=== PATIENT | male | born 1965 | race Caucasian/White ===

== ENCOUNTER 2017-02-02 01:47 | Emergency (ER) | payer OTHER ==
[2017-02-02 03:58] LABS: AMORPHOUS SEDIMENT,URINE TRACE /HPF; APPEARANCE,URINE TURBID; BILIRUBIN,URINE NEGATIVE (NEGATIVE); GLUCOSE, URINE NEGATIVE (NEGATIVE); KETONES,URINE NEGATIVE (NEGATIVE); LEUKOCYTE ESTERASE,URINE NEGATIVE (NEGATIVE); NITRITE,URINE NEGATIVE (NEGATIVE); PROTEIN,URINE NEGATIVE (NEGATIVE); URINE SPECIFIC GRAVITY 1.034; UROBILINOGEN,URINE NEGATIVE mg/dL (<2.0)
--- NOTE | 2017-02-02 05:38 | ER Document Report ---
ED Medical Screen (RME) - General Chief Complaint: Testicular Pain Stated Complaint: GROIN PAIN Notes: 51-year-old male, chief complaint of left testicular pain, symptoms started about 2 days ago, denies injury, denies discharge, fever, denies history of the same. States symptoms started after coughing episodes with upper respiratory infection. TRAVEL OUTSIDE OF THE [place] IN LAST 30 DAYS: No - Related Data Allergies/Adverse Reactions: No Known Allergies Allergy (Unverified 12/25/12 19:46) Past Medical History - Social History Family history: CAD, DM, Hyperlipidemia, Hypertension Renal/ Medical History: Denies: Hx Peritoneal Dialysis Psychiatric Medical History: Reports: Hx Anxiety - Immunizations Immunizations up to date: Yes Hx Diphtheria, Pertussis, Tetanus Vaccination: Yes Physical Exam - Vital signs Vitals: Temp Pulse Resp BP Pulse Ox 97.4 F 55 L 16 133/57 H 97 02/02/17 02:08 02/02/17 02:08 02/02/17 02:08 02/02/17 02:08 02/02/17 02:08 - Genitourinary Inspection: Normal Tenderness: Other - Testicular/epididymis area tender (posterior left scrotal tenderness) Cremasteric reflex: Normal Scrotum: No: Swelling, Redness, Hot to touch Course - Vital Signs Vital signs: Temp Pulse Resp BP Pulse Ox 97.4 F 55 L 16 133/57 H 97 02/02/17 02:08 02/02/17 02:08 02/02/17 02:08 02/02/17 02:08 02/02/17 02:08 - Laboratory Laboratory results interpreted by me: 02/02/17 02:15 Urine Blood SMALL H Doctor's Discharge - Discharge Additional Instructions: I have greeted and performed a rapid initial assessment of this patient. A comprehensive ED assessment and evaluation of the patient, analysis of test results and completion of the medical decision making process will be conducted by additional ED providers.
--- NOTE | 2017-02-02 07:15 | ER Document Report ---
ED General - General Chief Complaint: Testicular Pain Stated Complaint: GROIN PAIN Time Seen by Provider: 02/02/17 07:14 Mode of Arrival: Ambulatory Information source: Patient Notes: Patient presents emergency department with complaints of groin pain. He reports he had cold symptoms on Sunday coughing on Sunday and Sunday his groin started hurting. He was thinking maybe he pulled a muscle. He denies other symptoms such as vomiting diarrhea. Reports he had a low-grade fever on Sunday. Denies past medical history of injury. Reports he has been working out a lot lifting weights but has not done anything since last . Denies testicular swelling. Denies penile discharge or pain with void. TRAVEL OUTSIDE OF THE [place] IN LAST 30 DAYS: No - HPI Onset: Last week Onset/Duration: Sudden, Persistent Quality of pain: Achy Severity: Moderate Pain Level: 3 Associated symptoms: None Exacerbated by: Walking Relieved by: Denies Similar symptoms previously: No Recently seen / treated by doctor: No - Related Data Allergies/Adverse Reactions: No Known Allergies Allergy (Verified 02/02/17 06:43) Past Medical History - Social History Smoking Status: Never Smoker Chew tobacco use (# tins/day): No Frequency of alcohol use: None Drug Abuse: None Lives with: Family Family History: Reviewed & Not Pertinent Patient has suicidal ideation: No Patient has homicidal ideation: No Renal/ Medical History: Denies: Hx Peritoneal Dialysis Psychiatric Medical History: Reports: Hx Anxiety Surgical Hx: Negative - Immunizations Immunizations up to date: Yes Hx Diphtheria, Pertussis, Tetanus Vaccination: Yes Review of Systems - Review of Systems Notes: Review HPI for review of systems., All other systems negative Physical Exam - Vital signs Vitals: Temp Pulse Resp BP Pulse Ox 97.4 F 55 L 16 133/57 H 97 02/02/17 02:08 02/02/17 02:08 02/02/17 02:08 02/02/17 02:08 02/02/17 02:08 - Notes Notes: PHYSICAL EXAMINATION: GENERAL: Well-appearing and in no acute distress HEAD: Atraumatic, normocephalic. EYES: Pupils equal round extraocular movements intact, sclera anicteric, conjunctiva are normal. ENT: nares patent, . Moist mucous membranes. NECK: Normal range of motion, supple without lymphadenopathy LUNGS: CTAB and equal. No wheezes rales or rhonchi. HEART: Regular rate and rhythm without murmurs ABDOMEN: Soft, no tenderness. No guarding, no rebound BACK: Denies pain EXTREMITIES: Normal range of motion, no pitting edema. No cyanosis. NEUROLOGICAL: Cranial nerves grossly intact. Normal sensory/motor exams. PSYCH: Normal mood, normal affect. SKIN: Warm, Dry, normal turgor, no rashes or lesions noted - Genitourinary Tenderness: Nontender Scrotum: Normal. No: Swelling, Redness Notes: Witness by [facility] Course - Re-evaluation Re-evalutation: 02/02/17 Discussed Scrotal ultrasound with patient. Discussed plan of care, scrotal support, NSAIDS. Patient was given written information regarding varicoceles. He verbalized understanding to all instructions - Vital Signs Vital signs: Temp Pulse Resp BP Pulse Ox 97.9 F 55 L 16 113/67 95 02/02/17 08:13 02/02/17 08:13 02/02/17 08:13 02/02/17 08:13 02/02/17 08:13 - Laboratory Laboratory results interpreted by me: 02/02/17 02:15 Urine Blood SMALL H - Diagnostic Test Radiology reviewed: Image reviewed, Reports reviewed - Mom moderate bilateral varicoceles left more than right noted 2.7 cm right epididymal cyst spermicidal , normal testes Discharge - Discharge Clinical Impression: Testicular pain, Varicocele, epididymal cyst-spermatocele, Elevated blood pressure reading, Hematuria Condition: Stable Disposition: HOME, SELF-CARE Instructions: Testicular Pain ([facility]), Oral Narcotic Medication ([facility]), Hematuria ([facility]) Additional Instructions: *You have been evaluated for testicular pain, varicoceles *Take ibuprofen as indicated *Take medication as prescribed *Follow up with your primary care provider for recheck *Follow up with urology for evaluation *Wear tighter underwear or an athletic supporter *Return to ED for worsening condition, changes, needs Monitor your blood pressure. Your blood pressure was elevated today. This may be because you were anxious, in pain or because you need medication. It is important to follow up with your primary care provider for full evaluation. Prescriptions: Ibuprofen [Motrin 800 mg Tablet] 800 mg PO TID #30 tablet Forms: Elevated Blood Pressure, Return to Work Referrals: [facility] [Provider Group] - Follow up in 1 week
[2017-02-02] MEDS ORDERED: IBUPROFEN 800 MG TABLET PO ONE (07:28)
[2017-02-02] MEDS ORDERED: HYDROCODONE/ACETAMINOPHEN 5-325 MG 6 TAB/DSPK PO PRN (07:55)
[2017-02-02 08:14] VITALS: BP 113/67
== END 2017-02-02 08:15 | disposition home or self-care (01) ==
LOC: ER 01:47
DX: R10.30 Lower abdominal pain, unspecified (principal); N50.812 Left testicular pain; I86.1 Scrotal varices; N43.40 Spermatocele of epididymis, unspecified; R03.0 Elevated blood-pressure reading, without diagnosis of hypertension; R31.9 Hematuria, unspecified
CPT/HCPCS: 76870; 81001; 93976; 99284

== ENCOUNTER 2018-11-29 07:11 | Day surgery (SDC) | payer OTHER ==
[~2018-11-29 07:11] MED LIST: LIDOCAINE 0.5% INJ-PF (5 MG/ML) 50 ML SDV ONE; MIDAZOLAM 2 MG/2 ML INJ ONE; PROPOFOL INJ 200 MG/20 ML VIAL IV ONE
[2018-11-29] MEDS ORDERED: MEPERIDINE HCL/PF INJ 25 MG/1 ML DISP.SYRIN IV PRN (09:14)
[2018-11-29] MEDS ORDERED: ONDANSETRON HCL INJ/PF 4 MG/2 ML SDV IV PRN (09:14)
[2018-11-29] MEDS ORDERED: PROMETHAZINE HCL INJ 25 MG/1 ML VIAL IV PRN ×2 (09:14)
[2018-11-29] MEDS ORDERED: FENTANYL CITRATE INJ/PF 100 MCG/2 ML AMPUL IV PRN ×3 (09:14)
[2018-11-29] MEDS ORDERED: DIPHENHYDRAMINE HCL 50 MG/ML VIAL IV PRN (09:14)
[2018-11-29 10:45] VITALS: BP 114/70
--- NOTE | 2018-11-29 12:28 | Operative Report ---
Operative Report DATE OF SURGERY: 11/29/18 Operative Report: The risks, benefits and alternatives of the procedure including the risk of bleeding, perforation requiring surgery have been explained to the patient in detail and informed consent has been obtained. Patient is taken back to the operating room and placed in a left, lateral decubital position. Timeout was called. Propofol medication is administered. A rectal examination is done which did not reveal any masses, tears or fissures. An Olympus videoscope was introduced into the patient's rectum. The scope was then carefully advanced all the way to the cecum. The cecum was identified by the usual anatomical landmarks including the ileocecal valve as well as the appendiceal office. Photodocumentation is obtained. The scope was then sequentially pulled back via the various segments of the colon including the ascending colon, hepatic flexure, transverse colon, splenic flexure, descending colon and finally into the rectosigmoid portions of the colon. Retroflexion maneuver was performed. PREOPERATIVE DIAGNOSIS: Colorectal cancer screening POSTOPERATIVE DIAGNOSIS: Diverticulosis without any evidence of diverticulitis. Internal hemorrhoids. Random biopsies taken on the right side of the colon for mild inflammation rule out lymphocytic colitis OPERATION: Colonoscopy with biopsy SURGEON: ASHLYN FERGUSON ANESTHESIA: LMAC TISSUE REMOVED OR ALTERED: As noted above. COMPLICATIONS: None. ESTIMATED BLOOD LOSS: None. INTRAOPERATIVE FINDINGS: As noted above. PROCEDURE: Patient tolerated the procedure well. No immediate postprocedure complications are noted. Patient discharged in good condition. Discharge date 11/29/2018. Discharge diet: Regular. Discharge activity: Regular. 2-3-week follow-up to discuss findings. Patient is instructed call the office or proceed to the emergency room should there be any further proximal questions. I will wait on the pathology.
== END 2018-11-29 10:45 | disposition home or self-care (01) ==
LOC: OROUT 07:11
PROVIDERS: ATTEND Internal Medicine Gastroenterology
DX: Z12.11 Encounter for screening for malignant neoplasm of colon (principal); K57.30 Diverticulosis of large intestine without perforation or abscess without bleeding; K64.8 Other hemorrhoids; K52.9 Noninfective gastroenteritis and colitis, unspecified; N40.0 Benign prostatic hyperplasia without lower urinary tract symptoms
CPT/HCPCS: 45380; 88305 ×2; J2250; J3490; J2704; 811

== ENCOUNTER 2019-06-14 10:00 | Emergency (ER) | payer OTHER ==
--- NOTE | 2019-06-14 11:43 | ER Document Report ---
HPI - HPI Patient complains to provider of: mouth ulcers Time Seen by Provider: 06/14/19 10:49 Onset/Duration: Gradual Quality of pain: Achy, Sharp Severity: Moderate Pain Level: 3 Context: 54 yr old male pt with the listed pmh here for painful mouth ulcers x the last approx 5 days. saw his pcp dr casas a couple days ago who tested him for strep and that was neg per pt but per pt he still put him on amox and gave him a prednisone taper which pt states he has had a few doses of these and his sx are no better. states it hurts to swallow but he is able too. no trouble breathing/swallowing/handing secretions. no hx of this before. denies prior hx of herpes. denies lesions any where else. denies prior hx of cold sores however pt has one now that is healing. states prior to the painful mouth lesions he did have prodromal sx of body aches and subjective fever but didn't take his temp. states that those sx have resolved. no lopez, fevers now, neck pain/stiffness, vom, cp, sob, diarrhea, hx of this before, cough, vision changes, dizziness, numbness, tingling, weakness, saddle anesthesia, or incontinence. no changes in meds or diet. no other known source or cause. no other recent prior abx or steroids. no hx of diabetes or asthma. no hx of aphthous ulcers. denies concerns for stds. denies immunosuppressive dz, utd on shots. hasn't put anything on it. no other complaints at this time. is able to tolerate po however it is painful along with his secretions without difficulty. Similar symptoms previously: No Recently seen / treated by doctor: Yes - ROS Systems Reviewed and Negative: Yes All other systems reviewed and negative - to include 10 systems, unless mentioned in the hpi Past Medical History - General Information source: Patient - Social History Smoking Status: Unknown if Ever Smoked Chew tobacco use (# tins/day): No Frequency of alcohol use: None Drug Abuse: None Lives with: Spouse/Significant other Family History: Reviewed & Not Pertinent Patient has suicidal ideation: No Patient has homicidal ideation: No - Past Medical History Cardiac Medical History: Denies: Hx Coronary Artery Disease, Hx Heart Attack, Hx Hypertension Pulmonary Medical History: Denies: Hx Asthma Neurological Medical History: Denies: Hx Cerebrovascular Accident, Hx Seizures, Other - denies hx of: syphyllis/herpes Endocrine Medical History: Denies: Hx Diabetes Mellitus Type 1, Hx Diabetes Mellitus Type 2, Hx Hypothyroidism Renal/ Medical History: Reports: Hx Benign Prostatic Hyperplasia. Denies: Hx Kidney Stones, Hx Peritoneal Dialysis GI Medical History: Denies: Hx Gastritis, Hx Hepatitis, Hx Pancreatitis Musculoskeletal Medical History: Denies Hx Arthritis Skin Medical History: Reports None Psychiatric Medical History: Reports: Hx Anxiety Infectious Medical History: Denies: Hx Hepatitis - Immunizations Immunizations up to date: Yes Hx Diphtheria, Pertussis, Tetanus Vaccination: Yes Vertical Provider Document - CONSTITUTIONAL Agree With Documented VS: Yes Exam Limitations: No Limitations Notes: Vital signs: All vital signs were reviewed per nursing notes. Gen. appearance: Nontoxic, patient of stated age, sitting comfortably in the bed. pleasant, middle aged thin white male, who appears slightly older than stated age, smiling, speaking in full sentences, in no sign of pain or resp distress, no one is with him Psychiatric: Alert and oriented x3, pleasant and very conversational, normal affect. Skin: Warm, pink, dry, normal turgor, no rashes. ENT: Normocephalic, atraumatic, pupils are equal and reactive to light, extra- ocular muscles intact, tympanic membranes normal, mucosal membranes moist, pink conjunctiva, there is mild pharyngeal erythema and no tonsilar exudate and without hypertrophy bilaterally. There are no signs of abscess. The uvula is midline. There is no submandibular harness. There is no trismus. There is no tenderness over the sternocleidomastoid or thyroid cartilage. no drooling, tripoding, stridor, or hot potato voice. there is no thrush. no sign of dental abscess. there are however several, as in >5-7 small 1mm or less shallow ulcerations with healing yellowish-white eschar on the upper and lower and bilateral inner mucosa along with along the edge of the tip of the tongue-worst anterolaterinferiorly on the tongue, and also on the posterior pharynx. no tongue or lip swelling. no sign of ludwigs, parotitis, mastoiditis, salivary gland stone, drainable dental abscess, or aphthous ulcers. no koplik spots. Neck: Supple, no tenderness, mild bilat ant cerv lymphadenopathy. CV: Regular rate and rhythm, Lungs: Clear to auscultation bilaterally, no wheezes, symmetrical chest rise. Abdomen: Soft, nontender, nondistended, good bowel sounds, no rebound, rigidity, guarding, peritoneal signs or organomegally. No CVA tenderness bilaterally. This is a nonacute abdomen. No tenderness over McBurney's point. Back: no tenderness Extremities: Full rom, full strength, good pulses, normal gait, no swelling or ttp of extremities. good hand digital marketing consultant. brisk cap refill. Neuro: Cranial nerves II through XII intact, normal speech, cerebellar fxn intact, motor and sensation intact - INFECTION CONTROL TRAVEL OUTSIDE OF THE [place] IN LAST 30 DAYS: No Course - Re-evaluation Re-evalutation: pt here for likely herpes labialis and stomatitis. he does have a healing cold sore. he is tolerating po. appears clinically hydrated. his pcp apparently did a strep test on him a day or two ago that pt tells me was neg but apparently pcp still then put him on abx and a steroid taper. he hasn't had any improvement of his sx with these. did advise to dc them. advised to exercise strong and compliant infection control practices to prevent spreading likely herpes to anyone else. he had sx before starting amox and hasn't had any other recent abx or steroids so doubt tens, kavita brown, or erythema multiforme. he was pain controlled here and tolerating po and appears nontoxic and clinically hydrated. will dc with acyclovir and viscous lidocaine swish and swallow. advised sx care. push fluids. otc meds for pain. advised to f/u with pcp in 1-2 days. return for any worsening symptoms. vss. well appearing. satting well on ra. neurononfocal. pt understands and agrees to plan. On reexam, pt improved with tx listed. remained stable. nontoxic. well appearing. pain controlled. tolerating po. requesting to go home. Documentation achieved through voice recording which may lead to some occasional accidental typographical errors. Extensive efforts have been made to proof read documentation to make sure these are the least as possible. Category Date Time Status Lidocaine HCl [Xylocaine 2% Viscous Soln 20 ml Udcup] Med 06/14/19 12:07 Discontinued 15 ml PO NOW ONE - Vital Signs Vital signs: Temp Pulse Resp BP Pulse Ox 98.5 F 89 18 129/76 H 99 06/14/19 10:06 06/14/19 10:06 06/14/19 10:06 06/14/19 10:06 06/14/19 10:06 Temp Pulse Resp BP Pulse Ox 06/14/19 12:30 98.2 F 76 20 137/76 H 98 06/14/19 10:06 98.5 F 89 18 129/76 H 99 Discharge - Discharge Clinical Impression: Herpes stomatitis Condition: Good Disposition: HOME, SELF-CARE Instructions: Herpes Simplex ([facility]) Additional Instructions: Follow-up with PCP in 1 to 2 days. Return for any worsening symptoms. tylenol or motrin as needed for any pain or fever if not allergic. take the medication as prescribed. drink plenty of fluids. Do not have any intimate or oral/physical contact with anyone like drinking after someone or kissing etc, until your symptoms have completely resolved as you could transmit this to another person. stop taking the amoxicillin. Prescriptions: Acyclovir [Acyclovir 400 mg Tablet] 400 mg PO TID 10 Days #30 tablet Lidocaine HCl [Xylocaine 2% Viscous Soln 20 ml Udcup] 15 ml PO QID PRN #200 ml PRN Reason: For Breakthrough Pain Referrals: QUENTIN CASAS MD [Primary Care Provider] - Follow up tomorrow
[2019-06-14] MEDS ORDERED: LIDOCAINE 2% VISCOUS SOLN 20 ML UDCUP PO ONE (12:07)
[2019-06-14 12:34] VITALS: BP 137/76
== END 2019-06-14 12:34 | disposition home or self-care (01) ==
LOC: ER 10:00
DX: B00.2 Herpesviral gingivostomatitis and pharyngotonsillitis (principal); B00.1 Herpesviral vesicular dermatitis
CPT/HCPCS: 99282; J3490

== ENCOUNTER 2019-09-04 15:48 | Emergency (ER) | payer SELFPAY ==
--- NOTE | 2019-09-04 16:33 | ER Document Report ---
ED Neck/Back Problem - General Chief Complaint: Back Pain Stated Complaint: BACK PAIN Time Seen by Provider: 09/04/19 16:32 Primary Care Provider: QUENTIN CASAS MD [Primary Care Provider] - Follow up as needed Mode of Arrival: Medic Information source: Patient - Patient reports that today he was at work on his fifth day on his new job [employer]. He was stacking canned goods on shelves and noted that he had pain in his lower back. Left work early and went home and then later on today while in bed he noted that he had problems getting and pain when getting out of the bed so he called EMS in route comes to the emergency department by EMS. No trauma no reported injury. Patient has known degenerative disc disease in his lower back. TRAVEL OUTSIDE OF THE [place] IN LAST 30 DAYS: No - HPI Patient complains to provider of: Lower back Onset: Other - Today Where: Work Onset: Gradual Quality of pain: Achy Severity: Moderate Pain Level: 3 Context: Other - Any movement at this time causes pain Recent injury: No Exacerbated by: Movement of trunk Relieved by: Nothing Similar symptoms previously: Yes Recently seen / treated by doctor: No - Related Data Allergies/Adverse Reactions: No Known Allergies Allergy (Verified 09/04/19 17:15) Past Medical History - Social History Smoking Status: Never Smoker Family History: Reviewed & Not Pertinent - Past Medical History Cardiac Medical History: Denies: Hx Coronary Artery Disease, Hx Heart Attack, Hx Hypertension Pulmonary Medical History: Denies: Hx Asthma, Hx Bronchitis, Hx COPD, Hx Pneumonia Neurological Medical History: Denies: Hx Cerebrovascular Accident, Hx Seizures Endocrine Medical History: Denies: Hx Diabetes Mellitus Type 1, Hx Diabetes Mellitus Type 2, Hx Hypothyroidism Renal/ Medical History: Reports: Hx Benign Prostatic Hyperplasia. Denies: Hx Kidney Stones, Hx Peritoneal Dialysis GI Medical History: Denies: Hx Gastritis, Hx Hepatitis, Hx Pancreatitis Musculoskeletal Medical History: Denies Hx Arthritis Psychiatric Medical History: Reports: Hx Anxiety Infectious Medical History: Denies: Hx Hepatitis - Immunizations Immunizations up to date: Yes Hx Diphtheria, Pertussis, Tetanus Vaccination: Yes Review of Systems - Review of Systems Musculoskeletal: See HPI Physical Exam - Vital signs Vitals: Temp Pulse Resp BP Pulse Ox 98.1 F 56 L 18 131/69 H 99 09/04/19 16:04 09/04/19 16:04 09/04/19 16:04 09/04/19 16:04 09/04/19 16:04 Interpretation: Normal - General General appearance: Appears well, Alert - HEENT Head: Normocephalic, Atraumatic Eyes: Normal Pupils: PERRL - Respiratory Respiratory status: No respiratory distress Chest status: Nontender Breath sounds: Normal Chest palpation: Normal - Cardiovascular Rhythm: Regular Heart sounds: Normal auscultation Murmur: No - Abdominal Inspection: Normal Distension: No distension Bowel sounds: Normal Tenderness: Nontender Organomegaly: No organomegaly - Back Back: Normal, Nontender, Tender - Tenderness noted in the paraspinal muscles on the left lower back and right lower back areas. - Extremities General upper extremity: Normal inspection, Nontender, Normal color, Normal ROM, Normal temperature General lower extremity: Normal inspection, Nontender, Normal color, Normal ROM, Normal temperature, Normal weight bearing. No: Allen's sign - Neurological Neuro grossly intact: Yes Cognition: Normal Orientation: AAOx4 Griffith Coma Scale Eye Opening: Spontaneous Griffith Coma Scale Verbal: Oriented Griffith Coma Scale Motor: Obeys Commands Andrey Coma Scale Total: 15 Speech: Normal Motor strength normal: LUE, RUE, LLE, RLE Sensory: Normal - Psychological Associated symptoms: Normal affect, Normal mood - Skin Skin Temperature: Warm Skin Moisture: Dry Skin Color: Normal Course - Vital Signs Vital signs: Temp Pulse Resp BP Pulse Ox 97.8 F 61 15 128/67 H 98 09/04/19 20:31 09/04/19 20:31 09/04/19 20:31 09/04/19 20:31 09/04/19 20:31 - Laboratory Laboratory results interpreted by me: 09/04/19 18:09 Urine Urobilinogen 2.0 H - Diagnostic Test Radiology reviewed: Pending - Patient sitting up in chair out of the bed at this time. States his pain is better., Image reviewed, Reports reviewed Discharge - Discharge Clinical Impression: Back pain Qualifiers: Back pain location: low back pain Chronicity: chronic Back pain laterality: bilateral Sciatica presence: unspecified whether sciatica present Qualified Code(s): M54.5 - Low back pain; G89.29 - Other chronic pain Condition: Good Disposition: HOME, SELF-CARE Instructions: Low Back Pain ([facility]) Prescriptions: Cyclobenzaprine HCl [Flexeril 10 mg Tablet] 10 mg PO QHS PRN #10 tablet PRN Reason: Muscle Spasms Tramadol HCl [Ultram 50 mg Tablet] 50 mg PO Q6HP PRN #12 tab PRN Reason: For Pain Scale 4-5 Prednisone [Deltasone 20 mg Tablet] 1 tab PO DAILY 5 Days #5 tablet Ibuprofen [Ibu] 800 mg PO TID PRN #20 tablet PRN Reason: Forms: Return to Work Referrals: QUENTIN CASAS MD [Primary Care Provider] - Follow up as needed
[2019-09-04] MEDS ORDERED: KETOROLAC TROMETHAMINE 60 MG/2 ML SDV IM ONE (17:19)
[2019-09-04] MEDS ORDERED: DEXAMETHASONE SOD PHOS INJ 10 MG/1 ML VIAL IV ONE (17:19)
[2019-09-04] MEDS ORDERED: DEXAMETHASONE SOD PHOS INJ 10 MG/1 ML VIAL IM ONE (17:20)
--- NOTE | 2019-09-04 18:31 | RADIOLOGY REPORT (SQ) ---
EXAM DESCRIPTION: L SPINE WHOLE COMPLETED DATE/TIME: 09/04/2019 6:18 pm REASON FOR STUDY: low back pain COMPARISON: 10/27/2010 NUMBER OF VIEWS: Five views including obliques. TECHNIQUE: AP, lateral, oblique, and sacral radiographic images acquired of the lumbar spine. LIMITATIONS: None. FINDINGS: MINERALIZATION: Normal. SEGMENTATION: Normal. No transitional anatomy. ALIGNMENT: Normal. VERTEBRAE: Maintained height. No fracture or worrisome bone lesion. DISCS: Multilevel disc space narrowing with osteophytes. POSTERIOR ELEMENTS: Pedicles and facets are intact. No pars defect or posterior arch defects. Facet arthropathy is present. HARDWARE: None in the spine. PARASPINAL SOFT TISSUES: Normal. PELVIS: Intact as visualized. No fractures or worrisome bone lesions. SI joints intact. OTHER: No other significant finding. IMPRESSION: SPONDYLOSIS WITHOUT BONE LESION OR FRACTURE. TECHNICAL DOCUMENTATION: JOB ID: [id number] [employer]- All Rights Reserved Reading location - IP/workstation name: [email or web address]
[2019-09-04 18:43] LABS: APPEARANCE,URINE CLEAR; BILIRUBIN,URINE NEGATIVE (NEGATIVE); COLOR,URINE YELLOW; GLUCOSE, URINE NEGATIVE (NEGATIVE); KETONES,URINE NEGATIVE (NEGATIVE); LEUKOCYTE ESTERASE,URINE NEGATIVE (NEGATIVE); NITRITE,URINE NEGATIVE (NEGATIVE); PROTEIN,URINE NEGATIVE (NEGATIVE); URINE SPECIFIC GRAVITY 1.015
[2019-09-04] MEDS ORDERED: ZIPRASIDONE MESYLATE INJ/PF 20 MG SDV IM ONE (18:48)
[2019-09-04 18:58] LABS: URINE AMPHETAMINES SCREEN NEGATIVE; URINE BARBITURATES SCREEN NEGATIVE; URINE BENZODIAZEPINES SCREEN NEGATIVE; URINE COCAINE SCREEN NEGATIVE; URINE MARIJUANA (THC) SCREEN NEGATIVE; URINE METHADONE SCREEN NEGATIVE; URINE PHENCYCLIDINE SCREEN NEGATIVE
[2019-09-04 20:46] VITALS: BP 128/67
== END 2019-09-04 20:31 | disposition home or self-care (01) ==
LOC: ER 15:48
DX: M54.5 Low back pain (principal); X58.XXXA Exposure to other specified factors, initial encounter; Y99.0 Civilian activity done for income or pay
CPT/HCPCS: 81001; 80307; 72110; J1885; J3486; J1100; 96372; 99284